=== PATIENT | female | born 1940 | race Two or more races ===

== ENCOUNTER 2018-11-11 11:40 | Outpatient (CLI) | payer OTHER ==
[~2018-11-11 11:40] MED LIST: ACTONEL35 MG PO; PROTONIX40 MG PO; ZOFRAN4 MG PO
== END 2018-11-11 11:45 | disposition home or self-care (01) ==
LOC: LAB 11:40
DX: N30.00 Acute cystitis without hematuria (principal); B95.1 Streptococcus, group B, as the cause of diseases classified elsewhere

== ENCOUNTER 2018-11-16 09:15 | Outpatient (CLI) | payer OTHER | END 2018-11-16 09:25 | disposition home or self-care (01) | LOC: RAD 501 09:15 | DX: N20.0 Calculus of kidney (principal) ==

== ENCOUNTER 2019-03-11 12:43 | Outpatient (CLI) | payer OTHER | END 2019-03-11 12:58 | disposition home or self-care (01) | LOC: TOM 12:43 | DX: N39.0 Urinary tract infection, site not specified (principal) ==

== ENCOUNTER → 2019-03-31 12:16 | Outpatient (CLI) | payer OTHER | END | disposition home or self-care (01) | LOC: LAB 12:16 | DX: N30.00 Acute cystitis without hematuria (principal) ==

== ENCOUNTER 2019-04-02 10:51 | Outpatient (CLI) | payer OTHER | END 2019-04-02 10:54 | disposition home or self-care (01) | LOC: SONOGRAMA 10:51 | DX: N39.0 Urinary tract infection, site not specified (principal) ==

== ENCOUNTER → 2020-07-05 | Outpatient (CLI) | payer OTHER | END | disposition home or self-care (01) | LOC: LAB 10:20 | PROVIDERS: ATTEND Urology | DX: N30.00 Acute cystitis without hematuria (principal) ==

== ENCOUNTER 2021-05-16 22:16 | Inpatient (IN) | payer OTHER ==
[~2021-05-16] VITALS: Ht 157.5 cm; Wt 44.5 kg
[2021-05-16] MEDS ORDERED: NEURONTIN300 MG PO (22:35)
[2021-05-16] MEDS ORDERED: XANAX XR0.5 MG PO (22:35)
[2021-05-27] MEDS ORDERED: CODE1TAB37 (09:47)
== END 2021-05-31 12:38 | disposition expired | DRG 640 ==
LOC: ER 22:16 → MEDI 05-17 11:53
PROVIDERS: ADMIT Internal Medicine; ATTEND Internal Medicine
PROC: 4A12X4Z Monitoring of Cardiac Electrical Activity, External Approach (ICD-10-PCS; 2021-05-17)
PROC: 4A033R1 Measurement of Arterial Saturation, Peripheral, Percutaneous Approach (ICD-10-PCS; 2021-05-17)
PROC: 8E0ZXY6 Isolation (ICD-10-PCS; 2021-05-19)
PROC: 02H633Z Insertion of Infusion Device into Right Atrium, Percutaneous Approach (ICD-10-PCS; 2021-05-19)
PROC: 02H633Z Insertion of Infusion Device into Right Atrium, Percutaneous Approach (ICD-10-PCS; 2021-05-19)
PROC: 5A09457 Assistance with Respiratory Ventilation, 24-96 Consecutive Hours, Continuous Positive Airway Pressure (ICD-10-PCS; principal; 2021-05-28)
DX: E86.0 Dehydration (principal); A41.9 Sepsis, unspecified organism; J18.9 Pneumonia, unspecified organism; J96.01 Acute respiratory failure with hypoxia; N39.0 Urinary tract infection, site not specified; R18.8 Other ascites; Z16.12 Extended spectrum beta lactamase (ESBL) resistance; M80.08XA Age-related osteoporosis with current pathological fracture, vertebra(e), initial encounter for fracture; K56.690 Other partial intestinal obstruction; I50.32 Chronic diastolic (congestive) heart failure; L89.312 Pressure ulcer of right buttock, stage 2; B95.2 Enterococcus as the cause of diseases classified elsewhere; B96.20 Unspecified Escherichia coli [E. coli] as the cause of diseases classified elsewhere; M54.16 Radiculopathy, lumbar region; Z74.01 Bed confinement status; Z20.822 Contact with and (suspected) exposure to COVID-19; K29.70 Gastritis, unspecified, without bleeding
CPT/HCPCS: 72158